=== PATIENT | male | born 1950 | race Caucasian/White ===

== ENCOUNTER → 2021-04-09 | Outpatient (CLI) | payer MEDICARE ==
[~2021-04-09] MED LIST: ALBU90OI6 INH; ASPI325; ASPI81CH; BUDE6HFA; DIAZ10 PO; FLUSAL5005 INH; HYDACE5 PO; HYDMOR2 PO; HYDR1TAB94 PO; IBUP800 PO; LISI5 PO; NAPR550 PO; OXYACE5C PO; OXYACE5T PO; Prinivil10 MG; RXHYDMOR2 PO; TAMS.4ER PO
== END | disposition home or self-care (01) ==
LOC: LAB 13:53 → LAB SHORT 13:53
DX: N50.812 Left testicular pain (principal)
CPT/HCPCS: 87086

== ENCOUNTER 2021-05-31 06:12 | Day surgery (SDC) | payer MEDICARE ==
[~2021-05-31] VITALS: Ht 177.8 cm; Wt 118.8 kg
[~2021-05-31 06:12] MED LIST changes: -ASPI81CH; +ASPI81CH PO; -BUDE6HFA; +FISH OIL 1,2001 EAC7 PO; +MULVITA PO; -Prinivil10 MG; +Prinivil10 MG PO; +SYMBICORT 160-4.6 GM INH; +VITAMIN D310 MC4 PO
[2021-05-31] MEDS ORDERED: CHOLESTEROL MED (06:41)
--- NOTE | 2021-05-31 06:47 | NUR ---
PT ADMITTED TO [facility]. AGREES WITH PLANNED SURGERY. LUNG SOUNDS DIMINISHED.
--- NOTE | 2021-05-31 08:47 | NUR ---
PT STATES HE PUT HIS RING IN HIS SOCK.
--- NOTE | 2021-05-31 10:41 | NUR ---
Dressing to procedure site clean, dry, intact with no visible drainage, swelling, erythema or bruising noted. PT TOLERATING PO FLUIDS
--- NOTE | 2021-05-31 11:09 | NUR ---
Discharge instructions reviewed with patient. Patient verbalizes understanding. Copy given to patient to take home. Discharged via wheelchair to private car for ride home.
== END 2021-05-31 11:10 | disposition home or self-care (01) ==
LOC: ORSCMMR 06:12 → ORD 06-14 07:30
DX: K40.90 Unilateral inguinal hernia, without obstruction or gangrene, not specified as recurrent (principal); K41.90 Unilateral femoral hernia, without obstruction or gangrene, not specified as recurrent; I10 Essential (primary) hypertension; J44.9 Chronic obstructive pulmonary disease, unspecified; K21.9 Gastro-esophageal reflux disease without esophagitis; E66.01 Morbid (severe) obesity due to excess calories; Z68.37 Body mass index [BMI] 37.0-37.9, adult; Z79.899 Other long term (current) drug therapy; Z79.82 Long term (current) use of aspirin
CPT/HCPCS: 49650; 49659; S2900; A9270; C1781; J0360; J0690; J1100; J2250; J2370; J2405; J2704; J3010; J7120

== ENCOUNTER 2021-08-08 07:08 | Day surgery (SDC) | payer MEDICARE ==
[~2021-08-08] VITALS: Ht 177.8 cm; Wt 116.8 kg
[~2021-08-08 07:08] MED LIST changes: +CHOLESTEROL MED
[2021-08-08] MEDS ORDERED: ATOR20 PO (08:04)
--- NOTE | 2021-08-08 09:27 | NUR ---
08/08/21 0927 Minnie Gonzales History, Chart, Medications and Allergies reviewed before start of procedure.MONITOR INTACT WITH CONTINUOUS PULSE OXIMETRY AND INTERMITTENT BP.DR HOWARD PROVIDES ANESTHESIA
--- NOTE | 2021-08-08 10:28 | NUR ---
RECIEVED REPORT FROM CUCA BACON RN. PT RESTING COMFORTABLY IN BED. ABLE TO REPOSITION SELF IN BED, REQUESTING PO FLUIDS AND FOOD.
--- NOTE | 2021-08-08 10:37 | NUR ---
PT TOLERATING PO FLUIDS AND FOOD. REQUESTING TO GO HOME.
--- NOTE | 2021-08-08 10:51 | NUR ---
Patient up to Ambulate independently. Gait steady. Discharge instructions reviewed with patient. Patient verbalizes understanding. Copy given to patient to take home. Patient States Post-Procedure ride home has been arranged. ALL BELONGINGS RETURNED TO PATIENT THAT HE CAME TO STEPDOWN WITH.
== END 2021-08-08 23:12 | disposition home or self-care (01) ==
LOC: ORSCMMR 07:08 → ORD 08:45 → ORSCMMR 08:45
PROVIDERS: Surgery
PROC: 0DBN8ZX Excision of Sigmoid Colon, Via Natural or Artificial Opening Endoscopic, Diagnostic (ICD-10-PCS; principal; 2021-08-08 08:45)
PROC: 0DBK8ZX Excision of Ascending Colon, Via Natural or Artificial Opening Endoscopic, Diagnostic (ICD-10-PCS; principal; 2021-08-08 08:45)
DX: Z12.11 Encounter for screening for malignant neoplasm of colon (principal); D12.2 Benign neoplasm of ascending colon; Z86.010 Personal history of colon polyps; I10 Essential (primary) hypertension; J44.9 Chronic obstructive pulmonary disease, unspecified; G47.33 Obstructive sleep apnea (adult) (pediatric); K21.9 Gastro-esophageal reflux disease without esophagitis; E66.9 Obesity, unspecified; Z68.36 Body mass index [BMI] 36.0-36.9, adult; Z79.899 Other long term (current) drug therapy; Z79.82 Long term (current) use of aspirin
CPT/HCPCS: 88305; J2704; J7120

== ENCOUNTER → 2022-10-21 | Outpatient (CLI) | payer MEDICARE ==
[~2022-10-21] MED LIST changes: +ATOR20 PO
[2022-10-21 12:32] LABS: BASOPHILS ABSOLUTE AUTO 0.05 K/mm3 (0.00-0.23); BASOPHILS PERCENT AUTO 0 % (0-2); EOSINOPHILS ABSOLUTE AUTO 0.01 K/mm3 (0.00-0.68); EOSINOPHILS PERCENT AUTO 0 % (0-6); Hematocrit 49.1 % (37.0-53.0); Hemoglobin 17.4 g/dL (13.5-17.5); IMMATURE GRAN ABSOLUTE AUTO 0.05 K/mm3 (0.00-0.10); IMMATURE GRAN PERCENT AUTO 0 % (0-1); LYMPHOCYTES ABSOLUTE AUTO 0.77 K/mm3 (0.84-5.20); LYMPHOCYTES PERCENT AUTO 7 % (21-46); MONOCYTES ABSOLUTE AUTO 0.83 K/mm3 (0.16-1.47); MONOCYTES PERCENT AUTO 7 % (4-13); Mean Corpuscular HGB 31.3 pg (26.0-34.0); Mean Corpuscular HGB Conc 35.4 g/dL (31.5-36.5); Mean Corpuscular Volume 88 fL (80-100); Mean Platelet Volume 10.2 fL (9.1-12.4); NEUTROPHILS ABSOLUTE AUTO 9.86 K/mm3 (1.96-9.15); NEUTROPHILS PERCENT AUTO 85 % (41-73); Platelet Count 183 K/mm3 (150-400); RDW Coefficient Variation 12.6 % (11.7-14.2); RDW Standard Deviation 40.9 fL (35.1-46.3); Red Blood Cell Count 5.56 M/mm3 (4.30-5.90); White Blood Cell Count 11.57 K/mm3 (4.00-11.30)
[2022-10-21 12:37] LABS: Bun/Creatinine Ratio 9.9 (12.0-20.0); Creatinine, Blood 1.92 mg/dL (0.60-1.20); Potassium, Blood 3.9 mmol/L (3.5-5.5)
[2022-10-21 12:42] LABS: Calcium, Blood 9.8 mg/dL (8.5-10.1)
== END | disposition home or self-care (01) ==
LOC: LAB SHORT 12:28 → LAB 12:28
PROVIDERS: Family Medicine
DX: R10.9 Unspecified abdominal pain (principal)
CPT/HCPCS: 80048; 85025

== ENCOUNTER 2023-04-01 08:25 | Day surgery (SDC) | payer MEDICARE ==
[2023-04-01] VITALS (13 sets, daily range): BP systolic 93–145; BP diastolic 60–88
[~2023-04-01] VITALS: Ht 175.3 cm; Wt 111.6 kg
--- NOTE | 2023-04-01 10:27 | NUR ---
PT TO DAY SURGERY FOR LEFT HIP REPLACEMENT. AT SIDE. PLAN OF CARE DISCUSSED.
--- NOTE | 2023-04-01 11:15 | NUR ---
2 IV ATTEMPTS BY HERBERT
[2023-04-01] MEDS ORDERED: Acetaminophen650 M1 PO (11:21)
--- NOTE | 2023-04-01 13:49 | NUR ---
04/01/23 1349 Mag Glass SPINAL NERVE BLOCK COMPLETED BY DR. MACK UPON ENTRY TO OR. HOWEVER ONCE PATIENT WAS ON OR BED AND POSITIONED, PT COULD NOT TOLERATE LAYING FLAT. DR MACK PLACED AN LMA FOR BETTER AIRWAY MANAGEMENT.
--- NOTE | 2023-04-01 16:20 | NUR ---
PATIENT ARRIVED FROM PACU TODAY. POD 0 LEFT POSTERIOR HIP PATIENT IS A&OX4. VS ARE WNL AND IS ON RA. PATIENT HAD A SPINAL DURING THE PROCEDURE AND REPORTS NUMBNESS FROM THE WAIST DOWN. HE IS UNABLE TO WIGGLE TOES BUT PEDAL PULSES ARE STRONG AND WARM TO TOUCH. HIS LEFT HIP HAS X3 INCISIONS WITH FOAM AND GAUZE THAT ARE C/D/I. HE IS TOLERATING SMALL AMOUNTS OF PO INTAKE AT THIS TIME. HE IS LAYING IN BED WITH CALL LIGHT IN REACH AND AT BEDSIDE.
[2023-04-02 00:16] VITALS: BP 119/74
[2023-04-02 04:09] VITALS: BP 122/82
[2023-04-02 05:10] LABS: BASOPHILS ABSOLUTE AUTO 0.03 K/mm3 (0.00-0.23); BASOPHILS PERCENT AUTO 0 % (0-2); EOSINOPHILS PERCENT AUTO 0 % (0-6); Hematocrit 39.4 % (37.0-53.0); Hemoglobin 13.4 g/dL (13.5-17.5); IMMATURE GRAN ABSOLUTE AUTO 0.15 K/mm3 (0.00-0.10); IMMATURE GRAN PERCENT AUTO 1 % (0-1); LYMPHOCYTES ABSOLUTE AUTO 0.69 K/mm3 (0.84-5.20); LYMPHOCYTES PERCENT AUTO 4 % (21-46); MONOCYTES ABSOLUTE AUTO 0.65 K/mm3 (0.16-1.47); MONOCYTES PERCENT AUTO 4 % (4-13); Mean Corpuscular Volume 88 fL (80-100); Mean Platelet Volume 9.8 fL (9.1-12.4); NEUTROPHILS ABSOLUTE AUTO 16.89 K/mm3 (1.96-9.15); NEUTROPHILS PERCENT AUTO 92 % (41-73); Platelet Count 222 K/mm3 (150-400); RDW Coefficient Variation 11.9 % (11.7-14.2); RDW Standard Deviation 38.5 fL (35.1-46.3); Red Blood Cell Count 4.47 M/mm3 (4.30-5.90); White Blood Cell Count 18.41 K/mm3 (4.00-11.30)
[2023-04-02 05:38] LABS: Bun/Creatinine Ratio 24.4 (12.0-20.0); Creatinine, Blood 1.35 mg/dL (0.60-1.20); Potassium, Blood 4.2 mmol/L (3.5-5.5)
--- NOTE | 2023-04-02 05:48 | NUR ---
SHIFT SUMMARY ASSUMED CARE OF PT AT 1900. PT IS A/OX4. HEART SOUNDS REGULAR. LUNG SOUNDS CLEAR. PT L HIP HAS SUGICAL DRESSINGS, THEY ARE C/D/I, NO DRAINAGE. PT C/O BEING SORE THIS AM. PT MEDICATED PER EMAR. PT HAD TROUBLE URINATING LAST NIGHT. PT HAD ABOUT 300 OUTPUT. POT HAD TO PEE STANDING UP. PT ABLE TO WALK TO BATHROOM WITH A 1P SBA FWW GAITBELT.
--- NOTE | 2023-04-02 06:41 | NUR ---
DOCTOR TO ROOM DR STRICKLAND TO PT ROOM. DRESSING ASSESSED AND CHANGED. WOUND CARE AND ABX THERAPY EDUCATION GIVEN. PT VERBALIZED UNDERSTANDING AND IS EXCITED TO GO HOME.
[2023-04-02 07:46] VITALS: BP 139/76
[2023-04-02] MEDS ORDERED: ASPI81CH PO (10:00)
--- NOTE | 2023-04-02 10:34 | NUR ---
DISCHARGE SUMMARY PATIENT CLEARED THERAPY AND READY FOR DISCHARGE. AMBULATING WELL W/ FWW, GB, AND SBA. PATIENT VOIDING WELL. PAIN MANAGED W/ PO PAIN MEDICATIONS. IV REMOVED W/ CATH TIP INTACT. BELONGINGS GATHERED AND TAKEN OUT WITH PATIENT. VERBAL AND WRITTED DISCHARGE INSTRUCTIONS GIVEN, PATIENT AGREEABLE TO DISCHARGE. TOLERATING PO INTAKE. WHEELED OUT AND DISCHARGED HOME W/ SPOUSE IN PERSONAL VEHICLE.
== END 2023-04-02 10:41 | disposition home or self-care (01) ==
LOC: ORSCMMR 08:25 → ORD 14:00 → ORSCMMR 14:00 → SURS 16:08 → ORSCMMR 04-02 10:41
PROVIDERS: Orthopaedic Surgery
PROC: 0SRB0JZ Replacement of Left Hip Joint with Synthetic Substitute, Open Approach (ICD-10-PCS; principal; 2023-04-01 11:00)
DX: M16.12 Unilateral primary osteoarthritis, left hip (principal); E78.00 Pure hypercholesterolemia, unspecified; J44.9 Chronic obstructive pulmonary disease, unspecified; J45.909 Unspecified asthma, uncomplicated; E66.9 Obesity, unspecified; Z68.36 Body mass index [BMI] 36.0-36.9, adult; Z79.82 Long term (current) use of aspirin; Z79.899 Other long term (current) drug therapy; Z87.891 Personal history of nicotine dependence
CPT/HCPCS: 36415; 72170; 80048; 83735; 85025; 94660; 94762; 97110; 97116; 97162; 97165; 97530; 97535; A9270; C1713; C1776; J0171; J0690; J0735; J1100; J1885; J2250; J2371; J2405; J2704; J2795; J3010; J7120

== ENCOUNTER 2024-10-27 11:26 | Day surgery (SDC) | payer MEDICARE ==
[~2024-10-27] VITALS: Ht 177.8 cm; Wt 121.8 kg
[~2024-10-27 11:26] MED LIST changes: +Acetaminophen650 M1 PO
[2024-10-27] MEDS ORDERED: ALBU8HFA2 (11:58)
[2024-10-27] MEDS ORDERED: Labetalol HCL 5 MG/ML 4ML Injection (Single Dose) ONE (14:30)
[2024-10-27] MEDS ORDERED: Ipratropium/Albuterol SulF 2.5-0.5MG/3 ML Amp ONE (14:47)
--- NOTE | 2024-10-27 15:14 | NUR ---
10/27/24 1514 Toyin Kramer PT WHEELCHAIRED TO BATHROOM, PT STATED NEED TO USE THE RESTROOM. PT IN RESTROOM WITH .
[2024-10-27 15:24] VITALS: BP 131/96
== END 2024-10-27 15:30 | disposition home or self-care (01) ==
LOC: ORSCSDS 11:26
DX: Z12.11 Encounter for screening for malignant neoplasm of colon (principal); Z86.0101 Personal history of adenomatous and serrated colon polyps; D12.3 Benign neoplasm of transverse colon; D12.5 Benign neoplasm of sigmoid colon; K62.1 Rectal polyp; I10 Essential (primary) hypertension; G47.33 Obstructive sleep apnea (adult) (pediatric); J44.9 Chronic obstructive pulmonary disease, unspecified; N40.0 Benign prostatic hyperplasia without lower urinary tract symptoms; Z79.899 Other long term (current) drug therapy; Z79.82 Long term (current) use of aspirin; Z87.891 Personal history of nicotine dependence
CPT/HCPCS: 88305; J2704; J7120